=== PATIENT | female | born 1980 | race African-American/Black ===

== ENCOUNTER 2019-11-30 18:47 | Outpatient (CLI) | payer OTHER | END 2019-11-30 20:33 | disposition home or self-care (01) | LOC: RAD 18:47 | DX: J45.998 Other asthma (principal) ==

== ENCOUNTER 2019-12-01 10:14 | Outpatient (CLI) | payer OTHER | END 2019-12-01 10:25 | disposition home or self-care (01) | LOC: LAB 10:14 | DX: M06.09 Rheumatoid arthritis without rheumatoid factor, multiple sites (principal); J01.90 Acute sinusitis, unspecified; J45.998 Other asthma; B78.0 Intestinal strongyloidiasis; B77 Ascariasis; B39.2 Pulmonary histoplasmosis capsulati, unspecified; B78.9 Strongyloidiasis, unspecified; B44.89 Other forms of aspergillosis ==

== ENCOUNTER → 2022-02-11 15:06 | Outpatient (CLI) | payer OTHER | END | disposition home or self-care (01) | LOC: LAB 15:06 | PROVIDERS: ATTEND Internal Medicine Gastroenterology | DX: R10.13 Epigastric pain (principal) ==